=== PATIENT | female | born 1995 ===

== ENCOUNTER 2018-06-08 13:27 | Emergency (ER) | payer SELFPAY ==
--- NOTE | 2018-06-08 15:29 | RAD ---
RIGHT WRIST THREE VIEWS: HISTORY: Pain. COMPARISON: None. FINDINGS: No acute fracture or malalignment. Soft tissues are unremarkable. IMPRESSION: No acute abnormality. POS: [id number]
== END 2018-06-08 15:16 | disposition home or self-care (01) ==
LOC: ERS 13:27
DX: S63.501A Unspecified sprain of right wrist, initial encounter (principal); V00.311A Fall from snowboard, initial encounter
CPT/HCPCS: 29125